=== PATIENT | male | born 1960 | race Caucasian/White ===

== ENCOUNTER 2020-10-15 14:54 | Observation (INO) | payer OTHER ==
[2020-10-15 15:22] LABS: Absolute Lymphocytes (CBC) 4.2 K/uL (0.7-4.9); Basophils % 0.6 % (0-1.3); Hematocrit 42.5 % (39.6-49.0); Lymphocytes % 28.4 % (15.3-44.8); MPV 7.3 fL (7.6-11.3); RBC Red Blood Cell Count 4.49 M/uL (4.33-5.43)
[2020-10-15 15:23] LABS: Protime INR 1.09
[2020-10-15] MEDS ORDERED: ONDANSETRON 4 MG/2 ML VIAL ONE (15:28)
[2020-10-15] MEDS ORDERED: MECLIZINE HCL 12.5 MG TAB ONE (15:28)
[2020-10-15 15:35] LABS: ALT/SGPT 23 U/L (12-78); AST/SGOT 13 U/L (15-37); Albumin 3.6 g/dL (3.4-5.0); Alkaline Phosphatase 70 U/L (45-117); BUN Blood Urea Nitrogen 15 mg/dL (7-18); Bicarbonate 26 mmol/L (21-32); Bilirubin Direct 0.2 mg/dL (0-0.2); Bilirubin Total 0.9 mg/dL (0.2-1.0); Glucose Level 103 mg/dL (74-106); Magnesium 2.5 mg/dL (1.8-2.4); NT PRO-BNP 314 pg/mL (<125); Potassium 3.7 mmol/L (3.5-5.1); Protein, Total 7.6 g/dL (6.4-8.2); Sodium Level 140 mmol/L (136-145); Troponin (Emerg Dept Use Only) < 0.02 ng/mL (0.0-0.045)
--- NOTE | 2020-10-15 16:01 | RAD REPORT ---
EXAM DESCRIPTION: Irine[place] Single View10/15/2020 3:38 pm CLINICAL HISTORY: Syncope COMPARISON: 2008 FINDINGS: The lungs appear clear of acute infiltrate. The heart is normal size IMPRESSION: No acute abnormalities displayed
--- NOTE | 2020-10-15 16:05 | RAD REPORT ---
EXAM DESCRIPTION: CT - Head Brain Wo Cont - 10/15/2020 3:52 pm CLINICAL HISTORY: Syncope COMPARISON: None TECHNIQUE: Computed axial tomography of the head was obtained. IV contrast was not requested. All CT scans are performed using dose optimization technique as appropriate and may include automated exposure control or mA/KV adjustment according to patient size. FINDINGS: An intracranial bleed is not seen . The ventricles are normal in caliber. No extra-axial fluid collection is noted. Fluid within the sinuses/ mastoids is not seen. IMPRESSION: No acute intracranial abnormality is seen. If patient's symptoms persist MRI of the bra in would be recommended.
[2020-10-15] MEDS ORDERED: NA CHLORIDE 0.9% 1,000 ML ONE (16:46)
[2020-10-15] MEDS ORDERED: DIAZEPAM 10 MG/2 ML INJ SYRINGE ONE (17:18)
--- NOTE | 2020-10-15 17:18 | RAD REPORT ---
EXAM DESCRIPTION: CT - Chest For Pe Angio - 10/15/2020 4:49 pm CLINICAL HISTORY: Syncope COMPARISON: None. TECHNIQUE: Dynamically enhanced axial 3 mm thick images of the chest were obtained during administra tion of <100> mL Isovue 370 IV contrast. Coronal and oblique reconstruction images were generated and reviewed. Exam utilizes a protocol for optimal evaluation of pulmonary arterial tree. Maximum intensity projections 3D imaging was utilized All CT scans are performed using dose optimization technique as appropriate and may include automated exposure control or mA/KV adjustment according to patient size. FINDINGS: A pulmonary embolus is not seen. A thoracic aortic aneurysm is not noted. A pleural effusion is not seen. A pericardial effusion is not seen. A lung consolidation is not present. 5.3 x 3.3 centimeter mass is present within the anterior mediastinum extending into the middle medias tinum and abutting the left aspect of the heart IMPRESSION: Negative for a pulmonary embolism. 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 It is recom mended that patient have a cardiac echo for further evaluation
--- NOTE | 2020-10-15 17:35 | EDPHYS ---
Physician Documentation [facility] Name: Hiram Art Age: 60 yrs Sex: Male : 1960 Arrival Date: 10/15/2020 Time: 15:01 Bed 24 Private MD: ED Physician Kamron Hawk HPI: 10/15 15:03 This 60 yrs old Male presents to ER via EMS with complaints of Near Syncope. [facility] 15:03 The patient has experienced near-syncope. Onset: The symptoms/episode began/occurred jmm acutely, just prior to arrival. Associated injury: The patient did not suffer any apparent associated injury. Associated signs and symptoms: Pertinent positives: lightheadedness, vertigo. The patient has experienced a previous episode. This is a 60 year old male with no known chronic medical conditions that presents to the ED with complaints of dizziness beginning just prior to arrival. This occurred while sitting in his car. Patient states having a similar episode this past Friday which had resolved. Denies chest pain. Historical: - Allergies: 15:08 No Known Allergies; ss - Home Meds: 15:08 None [Active]; ss - PMHx: 15:08 None; ss - PSHx: 15:08 None; ss - Immunization history:: Adult Immunizations up to date. - Social history:: Smoking status: Patient denies any tobacco usage or history of. ROS: 15:03 Constitutional: Negative for fever, chills, and weight loss, Cardiovascular: Negative jmm for chest pain, palpitations, and edema, Respiratory: Negative for shortness of breath, cough, wheezing, and pleuritic chest pain. 15:03 Neuro: Positive for dizziness. 15:03 All other systems are negative. Exam: 15:03 Head/Face: atraumatic. Eyes: EOMI, no conjunctival erythema appreciated ENT: Moist jmm Mucus Membranes Neck: Trachea midline, Supple Chest/axilla: Normal chest wall appearance and motion. Cardiovascular: Regular rate and rhythm. No edema appreciated Respiratory: Normal respirations, no respiratory distress appreciated Abdomen/GI: Non distended, soft Back: Normal ROM Skin: General appearance color normal 15:03 Constitutional: The patient appears alert, awake, diaphoretic. 15:03 Musculoskeletal/extremity: ROM: intact in all extremities. 15:03 Neuro: Orientation: is normal, Mentation: is normal, Memory: is normal, Cerebellar function: normal finger to nose testing. Vital Signs: 15:00 BP 135 / 76 RA (man/reg); Pulse 69; Resp 12; Pulse Ox 99% on R/A; jp3 15:05 BP 126 / 81; Pulse 70; Resp 14; Temp 97.7(TE); Pulse Ox 97% on R/A; Weight 95.71 kg; ss Height 5 ft. 9 in. (175.26 cm); Pain 0/10; 16:00 BP 130 / 72; Pulse 73; Resp 16; Pulse Ox 96% on R/A; vg1 17:11 BP 143 / 86; Pulse 83; Resp 16; Pulse Ox 100% on R/A; vg1 18:00 BP 157 / 101; Pulse 79; Resp 12; Pulse Ox 98% on R/A; vg1 19:00 BP 170 / 110; Pulse 63; Resp 12; Pulse Ox 98% on R/A; vg1 20:00 BP 159 / 97; Pulse 75; Resp 18; Pulse Ox 97% on R/A; vg1 21:00 BP 165 / 113; Pulse 70; Resp 16; Pulse Ox 100% on R/A; vg1 15:05 Body Mass Index 31.16 (95.71 kg, 175.26 cm) ss MDM: 15:03 Patient medically screened. [facility] 17:32 Data reviewed: vital signs, nurses notes. Counseling: I had a detailed discussion with iwona the patient and/or guardian regarding: the historical points, exam findings, and any diagnostic results supporting the discharge/admit diagnosis, lab results, radiology results, the need for further work-up and treatment in the hospital. ED course: I discussed the patient with Dr. Cohen whom accepted the patient for admission. . 10/15 15:03 Order name: Basic Metabolic Panel; Complete Time: 15:36 [facility] 10/15 15:03 Order name: CBC with Diff; Complete Time: 15: [facility] 10/15 15:03 Order name: LFT's; Complete Time: 15:36 [facility] 10/15 15:03 Order name: Magnesium; Complete Time: 15:36 [facility] 10/15 15:03 Order name: NT PRO-BNP; Complete Time: 15:36 [facility] 10/15 15:03 Order name: PT-INR; Complete Time: 16:23 [facility] 10/15 15:03 Order name: Troponin (emerg Dept Use Only); Complete Time: 15:36 [facility] 10/15 15:03 Order name: XRAY Chest (1 view); Complete Time: 16:05 [facility] 10/15 15:03 Order name: CT Head Brain wo Cont; Complete Time: 16:06 [facility] 10/15 16:19 Order name: D-Dimer; Complete Time: 16:23 [facility] 10/15 19:20 Order name: SARS-COV-2 RT PCR; Complete Time: 19:37 [facility] 10/15 15:03 Order name: EKG; Complete Time: 15:05 [facility] 10/15 15:03 Order name: Cardiac monitoring; Complete Time: 15:07 [facility] 10/15 15:03 Order name: EKG - Nurse/Tech; Complete Time: 15:07 [facility] 10/15 15:03 Order name: IV Saline Lock; Complete Time: 15:07 [facility] 10/15 15:03 Order name: Labs collected and sent; Complete Time: 15:07 [facility] 10/15 15:03 Order name: O2 Per Protocol; Complete Time: 15:08 [facility] 10/15 15:03 Order name: O2 Sat Monitoring; Complete Time: 15:08 [facility] 10/15 16:23 Order name: CT Chest For PE Angio; Complete Time: 17:20 [facility] 10/15 19:32 Order name: CONS Physician Consult [facility] Administered Medications: 15:13 Drug: Zofran (Ondansetron) 4 mg Route: IVP; Site: left antecubital; vg1 16:25 Follow up: Response: No adverse reaction vg1 15:13 Drug: Meclizine 25 mg Route: PO; vg1 16:25 Follow up: Response: No adverse reaction vg1 16:31 Drug: NS 0.9% 1000 ml Route: IV; Rate: 1 bolus; Site: left antecubital; vg1 17:30 Follow up: IV Status: Completed infusion; IV Intake: 1000ml vg1 17:05 Drug: Valium (diazepam) 2 mg Route: IVP; Site: left antecubital; vg1 18:00 Follow up: Response: No adverse reaction vg1 Disposition: 10/15/20 17:34 Hospitalization ordered by Shanita Cohen for Observation. Preliminary diagnosis are Syncope and collapse, Vertigo. - Bed requested for Telemetry/MedSurg (observation). - Status is Observation. vg1 - Condition is Stable. - Problem is new. - Symptoms are unchanged. Addendum: 10/18/2020 17:32 Co-signature as Attending Physician, Kamron Hawk MD. [place] Signatures: Dispatcher [employer] EDOR Nya Ron RN RN Kamron Hawk MD MD pkPaul Alegre PA PA [facility] Rain Campbell RN RN ss Shari Rodriguez RN RN vg1 Corrections: (The following items were deleted from the chart) 10/15 16:19 15:37 D-DIMER+COAG.LAB.BRZ ordered. EDOR EDMS 16:29 16:24 Head Angio+CT.RAD.BRZ ordered. EDOR EDMS 16:29 16:24 Neck Angio+CT.RAD.BRZ ordered. EDOR EDMS 18:26 17:57 CORONAVIRUS+MR.LAB.BRZ ordered. EDOR EDMS 19:36 17:34 Hospitalization Ordered by Shanita Cohen MD for Observation. Preliminary diagnosis is Syncope and collapse; Vertigo. Bed requested for Telemetry/MedSurg (observation). Status is Observation. Condition is Stable. Problem is new. Symptoms are unchanged. [facility] 21:59 19:36 10/15/2020 17:34 Hospitalization Ordered by Shanita Cohen MD for Observation. vg1 Preliminary diagnosis is Syncope and collapse; Vertigo. Bed requested for Telemetry/MedSurg (observation). Status is Observation. Condition is Stable. Problem is new. Symptoms are unchanged. dw
--- NOTE | 2020-10-15 17:35 | ER ---
Nurse's Notes [facility] Name: Hiram Art Age: 60 yrs Sex: Male : 1960 Arrival Date: 10/15/2020 Time: 15:01 Bed 24 Private MD: Diagnosis: Syncope and collapse;Vertigo Presentation: 10/15 15:05 Chief complaint: EMS states: PT was sitting in car with AC on waiting on a friend when ss he suddenly became dizzy, weak and diaphoretic. Pulse upon arrival to scene was 40 bmp. PT reports feeling better now, but is just weak. Pt reports he felt fine this morning, but had an episode of dizziness, "like the room was spinning", but lasted only momentarily. Coronavirus screen: Client denies travel out of the [place] in the last 14 days. Ebola Screen: Patient denies exposure to infectious person. Patient denies travel to an Ebola-affected area in the 21 days before illness onset. Initial Sepsis Screen: Does the patient meet any 2 criteria? No. Patient's initial sepsis screen is negative. Does the patient have a suspected source of infection? No. Patient's initial sepsis screen is negative. Risk Assessment: Do you want to hurt yourself or someone else? Patient reports no desire to harm self or others. Onset of symptoms was October 15, 2020. 15:05 Method Of Arrival: EMS: [facility] 15:05 Acuity: MARY 2 ss Historical: - Allergies: 15:08 No Known Allergies; ss - Home Meds: 15:08 None [Active]; ss - PMHx: 15:08 None; ss - PSHx: 15:08 None; ss - Immunization history:: Adult Immunizations up to date. - Social history:: Smoking status: Patient denies any tobacco usage or history of. Screenin:15 Abuse screen: Denies threats or abuse. Nutritional screening: No deficits noted. vg1 Tuberculosis screening: No symptoms or risk factors identified. Fall Risk Fall in past 12 months (25 points). No secondary diagnosis (0 pts). IV access (20 points). Ambulatory Aid- None/Bed Rest/Nurse Assist (0 pts). Gait- Normal/Bed Rest/Wheelchair (0 pts) Mental Status- Oriented to own ability (0 pts). Total Enrique Fall Scale indicates High Risk Score (45 or more points). Fall prevention measures have been instituted. Side Rails Up X 2 Placed Close to Nursing Station 1:1 Attendant Assigned Family Present and informed to notify staff if the need to leave the bedside. Assessment: 15:14 General: Appears in no apparent distress. uncomfortable, Behavior is calm, cooperative. vg1 Pain: Denies pain. Neuro: Level of Consciousness is awake, alert, obeys commands, Oriented to person, place, time, situation. Cardiovascular: Capillary refill < 3 seconds in bilateral fingers. Respiratory: Airway is patent Respiratory effort is even, unlabored. GI: Patient currently denies diarrhea, nausea, vomiting. : No signs and/or symptoms were reported regarding the genitourinary system. EENT: No signs and/or symptoms were reported regarding the EENT system. Derm: Skin is diaphoretic. Musculoskeletal: Circulation, motion, and sensation intact. 16:24 Reassessment: Patient appears in no apparent distress at this time. No changes from vg1 previously documented assessment. Patient and/or family updated on plan of care and expected duration. Pain level reassessed. Patient is alert, oriented x 3, equal unlabored respirations, skin warm/dry/pink. 16:32 Reassessment: Pt stated 'is feeling dizzy, feels like if I were to stand I'd fall.' vg1 Asked if the room seemed to be spinning and pt stated 'no'. Provider notified. 20:25 Reassessment: Attempted to call report. vg1 20:50 Reassessment: attempt to call report. vg1 Vital Signs: 15:00 BP 135 / 76 RA (man/reg); Pulse 69; Resp 12; Pulse Ox 99% on R/A; jp3 15:05 BP 126 / 81; Pulse 70; Resp 14; Temp 97.7(TE); Pulse Ox 97% on R/A; Weight 95.71 kg; ss Height 5 ft. 9 in. (175.26 cm); Pain 0/10; 16:00 BP 130 / 72; Pulse 73; Resp 16; Pulse Ox 96% on R/A; vg1 17:11 BP 143 / 86; Pulse 83; Resp 16; Pulse Ox 100% on R/A; vg1 18:00 BP 157 / 101; Pulse 79; Resp 12; Pulse Ox 98% on R/A; vg1 19:00 BP 170 / 110; Pulse 63; Resp 12; Pulse Ox 98% on R/A; vg1 20:00 BP 159 / 97; Pulse 75; Resp 18; Pulse Ox 97% on R/A; vg1 21:00 BP 165 / 113; Pulse 70; Resp 16; Pulse Ox 100% on R/A; vg1 15:05 Body Mass Index 31.16 (95.71 kg, 175.26 cm) ED Course: 15:01 Patient arrived in ED. vg1 15:01 Paul Betancourt PA is PHCP. jm 15:01 Kamron Hawk MD is Attending Physician. [facility] 15:07 Shari Rodriguez, RN is Primary Nurse. vg1 15:08 Triage completed. ss 15:08 Arm band placed on right wrist. ss 15:08 Initial lab(s) drawn, by me, sent to lab. EKG done, by ED staff, reviewed by Paul KHALIL. Maintain EMS IV. Dressing intact. Good blood return noted. Site clean \\T\\ dry. Gauge \\T\\ site: 20-gauge in LAC. Patient maintains SpO2 saturation greater than 95% on room air. 15:09 Placed in gown. Bed in low position. Call light in reach. Side rails up X2. Verbal jp3 reassurance given. monitor worker on. Pulse ox on. NIBP on. 15:38 XRAY Chest (1 view) In Process Unspecified. EDMS 15:50 CT Head Brain wo Cont In Process Unspecified. EDMS 16:49 CT Chest For PE Angio In Process Unspecified. EDMS 16:[address] via stretcher. vg1 16:[address]. vg1 17:34 Shanita Cohen MD is Hospitalizing Provider. [facility] 18:10 COVID swab sent to lab. vg1 21:20 Patient admitted, IV remains in place. vg1 21:20 No provider procedures requiring assistance completed. vg1 Administered Medications: 15:13 Drug: Zofran (Ondansetron) 4 mg Route: IVP; Site: left antecubital; vg1 16:25 Follow up: Response: No adverse reaction vg1 15:13 Drug: Meclizine 25 mg Route: PO; vg1 16:25 Follow up: Response: No adverse reaction vg1 16:31 Drug: NS 0.9% 1000 ml Route: IV; Rate: 1 bolus; Site: left antecubital; vg1 17:30 Follow up: IV Status: Completed infusion; IV Intake: 1000ml vg1 17:05 Drug: Valium (diazepam) 2 mg Route: IVP; Site: left antecubital; vg1 18:00 Follow up: Response: No adverse reaction vg1 Intake: 17:30 IV: 1000ml; Total: 1000ml. vg1 Outcome: 17:34 Decision to Hospitalize by Provider. iwona 21:19 Admitted to Med/surg accompanied by tech, via wheelchair, room 421, with chart, Report vg1 called to DIOGO [place] 21:19 Condition: unchanged 21:19 Instructed on the need for admit. 21:59 Patient left the ED. vg1 Signatures: Dispatcher [employer] EDMS Paul Betancourt PA PA jmm Smirch, Shelby, DIOGO RN Karlos Gaines jp3 Shari Rodriguez RN RN vg1
--- NOTE | 2020-10-15 21:15 | P.HP ---
Certification for Inpatient Patient admitted to: Observation With expected LOS: <2 Midnights Patient will require the following post-hospital care: None Practitioner: I am a practitioner with admitting privileges, knowledge of patient current condition, hospital course, and medical plan of care. Services: Services provided to patient in accordance with Admission requirements found in Title 42 Section 412.3 of the Code of Federal Regulations Patient History Date of Service: 10/15/20 Reason for admission: near syncope History of Present Illness: Mr. Art is a 60 yo male here today with near syncopal event and extreme diaphoresis. He says today around 2pm he started to feel faint and dizzy. He says he was going in and out of consciousness for a few seconds at a time. He says on Friday, he woke up feeling dizzy. He denies chest pain, nausea, vomiting. Feels at baseline now. He says this happened once about 10 years ago while on vacation and he followed up with Dr. Fernandes with normal stress test at that time. Denies smoking, family history of CAD. WBC 14.8. CXR shows bronchogenic cyst with recommendations for followup ECHO. Allergies No Known Allergies Allergy (Unverified 10/15/20 20:57) Home Medications: NK [No Home Meds] 10/15/20 - Past Medical/Surgical History Has patient received pneumonia vaccine in the past: No Diabetic: No Past Medical History: Patient denies medical history Past Surgical History: Patient denies surgical history - Family History Family History: Reviewed- Non-Contributory - Social History Smoking Status: Never smoker Alcohol use: Yes CD- Drugs: No Caffeine use: Yes Place of Residence: Home Review of Systems General: Sweats, As per HPI Eyes: Unremarkable ENT: Unremarkable Respiratory: Unremarkable Cardiovascular: Light Headedness, Other (near syncopal episode) Gastrointestinal: Unremarkable Genitourinary: Unremarkable Musculoskeletal: Unremarkable Integumentary: Unremarkable Neurological: Unremarkable Lymphatics: Unremarkable Physical Examination - Physical Exam General: Alert, In no apparent distress, Oriented x3, Cooperative HEENT: Atraumatic, Normocephalic, PERRLA, Mucous membr. moist/pink, EOMI, Sclerae nonicteric Neck: Supple, 2+ carotid pulse no bruit, JVD not distended, No Thyromegaly, No LAD Respiratory: Clear to auscultation bilaterally, Normal air movement Cardiovascular: No edema, Normal pulses, Regular rate/rhythm, Normal S1 S2, No gallops, No rubs, No murmurs Capillary refill: <2 Seconds Gastrointestinal: Normal bowel sounds, Soft and benign, Non-distended, No ascites, No tenderness, No masses, No rebound, No guarding Musculoskeletal: No clubbing, No swelling, No contractures, No erythema, No tenderness, No warmth Integumentary: No rashes, No breakdown, No significant lesion, No tenderness/swelling, No erythema, No warmth, No cyanosis Neurological: Normal gait, Normal speech, Normal strength at 5/5 x4 extr, Normal tone, Sensation intact, Cranial nerves 3-12 intact, Normal affect Lymphatics: No axilla or inguinal lymphadenopathy - Studies Laboratory Data (last 24 hrs) 10/15/20 15:00: PT 12.5, INR 1.09 10/15/20 15:00: WBC 14.80 H, Hgb 14.4, Hct 42.5, Plt Count 362 10/15/20 15:00: Sodium 140, Potassium 3.7, BUN 15, Creatinine 1.25, Glucose 103, Magnesium 2.5 H, Total Bilirubin 0.9, AST 13 L, ALT 23, Alkaline Phosphatase 70 Assessment and Plan - Plan Assessment near syncopal event bronchogenic cyst Plan Cardiology consulted, on telemetry trend troponins and EKG lipid panel, TSH/T4, A1c pending DVt ppx BP initially well controlled, IV hydralazine 10mg IV q6hr, will continue to monitor orthostatic vitals in the AM will consider inpatient ECHO for bronchogenic cyst vs outpatient followup Discharge Plan: Home Plan to discharge in: 24 Hours - Advance Directives Does patient have a Living Will: No Does patient have a Durable POA for Healthcare: No - Code Status/Comfort Care Code Status Assessed: Yes (full code) Critical Care: No Time Spent Managing Pts Care (In Minutes): 70
[2020-10-15] MEDS: HYDRALAZINE HCL 20 MG/ML VIAL IV PRN (22:30)
[2020-10-15] MEDS ORDERED: ACETAMINOPHEN 500 MG TAB PO PRN (22:38)
[2020-10-15] MEDS ORDERED: ZOLPIDEM TARTRATE 5 MG TABLET PO PRN (22:38)
[2020-10-15 23:22] VITALS: BMI 30.7
[2020-10-15 23:34] LABS: Thyroid Stimulating Hormone 0.967 uIU/mL (0.360-3.740); Troponin I < 0.02 ng/mL (0.0-0.045)
[2020-10-16 03:37] LABS: Absolute Lymphocytes (CBC) 2.1 K/uL (0.7-4.9); Basophils % 0.5 % (0-1.3); Hematocrit 41.5 % (39.6-49.0); Lymphocytes % 22.7 % (15.3-44.8); MPV 7.3 fL (7.6-11.3); RBC Red Blood Cell Count 4.38 M/uL (4.33-5.43)
[2020-10-16 03:46] LABS: Albumin 3.3 g/dL (3.4-5.0); Bilirubin Total 0.7 mg/dL (0.2-1.0); Magnesium 2.6 mg/dL (1.8-2.4); Phosphorus 3.6 mg/dL (2.5-4.9); Potassium 4.4 mmol/L (3.5-5.1)
[2020-10-16 04:24] LABS: Urine Appearance CLEAR (Clear); Urine Bilirubin NEGATIVE (Negative); Urine Blood NEGATIVE (Negative); Urine Color YELLOW (Yellow); Urine Glucose NEGATIVE (Negative); Urine Protein NEGATIVE (Negative); Urine Specific Gravity 1.025 (1.005-1.030); Urine Urobilinogen 0.2 mg/dL (0.2-1.0)
[2020-10-16 04:29] LABS: Urine Microscopic Reflex NO UMIC
[2020-10-16] MEDS ORDERED: METOPROLOL TAR 25 MG TAB PO SCH (06:00)
[2020-10-16] MEDS: HYDRALAZINE HCL 20 MG/ML VIAL IV PRN (08:33)
[2020-10-16 08:43] VITALS: TEMP 97.9
[2020-10-16] MEDS ORDERED: ASPIRIN EC 81 MG TAB PO SCH (09:00)
[2020-10-16] MEDS ORDERED: ENOXAPARIN 40 MG/0.4 ML SQ SCH (09:00)
--- NOTE | 2020-10-16 10:49 | EKG ---
Test Date: 2020-10-15 Test Time: 14:58:15 Cosmetician: RACHAEL MEASUREMENT RESULTS: Intervals: Rate: 68 MN: 168 QRSD: 86 QT: 432 QTc: 459 [place]: P: 48 MN: 168 QRS: 12 T: 36 INTERPRETIVE STATEMENTS: Normal sinus rhythm Moderate voltage criteria for LVH, may be normal variant Borderline ECG No previous ECG available for comparison Electronically Signed On 10-16-20 10:46:47 CDT by Jamil Medina
--- NOTE | 2020-10-16 10:52 | ECHO ---
HEIGHT: 5 ft 9 in WEIGHT: 208 lb 6.4 oz DATE OF STUDY: 10/16/[address]: Chaz Tee DO 2-DIMENSIONAL: YES M.MODE: YES DOPPLER: YES COLOR FLOW: YES TDS: PORTABLE: DEFINITY: BUBBLE STUDY: DIAGNOSIS: SYNCOPE CARDIAC HISTORY: CATHERIZATION: NO SURGERY: NO PROSTHETIC VALVE: NO PACEMAKER: NO MEASUREMENTS (cm) DIASTOLIC (NORMALS) SYSTOLIC (NORMALS) IVSd 1.3 (0.6-1.2) LA Diam 3.2 (1.9-4.0) LVEF 83% LVIDd 4.0 (3.5-5.7) LVIDs 1.9 (2.0-3.5) %FS 51% LVPWd 1.3 (0.6-1.2) Ao Diam 2.8 (2.0-3.7) 2 DIMENSIONAL ASSESSMENT: RIGHT ATRIUM: NORMAL LEFT ATRIUM: NORMAL RIGHT VENTRICLE: NORMAL LEFT VENTRICLE: NORMAL TRICUSPID VALVE: NORMAL MITRAL VALVE: NORMAL PULMONIC VALVE: NORMAL AORTIC VALVE: NORMAL PERICARDIAL EFFUSION: NONE AORTIC ROOT: NORMAL LEFT VENTRICULAR WALL MOTION: NORMAL DOPPLER/COLOR FLOW: NORMAL COMMENTS: NORMAL 2-DIMENSIONAL ECHOCARDIOGRAM WITH DOPPLER. NO WALL MOTION ABNORMALITY. NO EFFUSION. TECHNOLOGIST: RAMÓN HOOD
[2020-10-16 11:49] VITALS: O2SAT 99
--- NOTE | 2020-10-16 12:16 | P.DS ---
Admission Date: 10/15/20 Discharge Date: 10/16/20 Primary Care Provider: none Disposition: ROUTINE DISCHARGE Discharge Condition: GOOD Reason for Admission: near syncope Consultations: Cardiology-Dr. Medina Pulmonary-Dr. Hobbs Procedures: COVID: Negative CT Head: FINDINGS: An intracranial bleed is not seen . The ventricles are normal in caliber. No extra-axial fluid collection is noted. Fluid within the sinuses/ mastoids is not seen. IMPRESSION: No acute intracranial abnormality is seen. CT Scan: FINDINGS: A pulmonary embolus is not seen. A thoracic aortic aneurysm is not noted. A pleural effusion is not seen. A pericardial effusion is not seen. A lung consolidation is not present. 5.3 x 3.3 centimeter mass is present within the anterior mediastinum extending into the middle mediastinum and abutting the left aspect of the heart IMPRESSION: Negative for a pulmonary embolism. 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 It is recommended that patient have a cardiac echo for further evaluation ECHO: MEASUREMENTS (cm) DIASTOLIC (NORMALS) SYSTOLIC (NORMALS) IVSd 1.3 (0.6-1.2) LA Diam 3.2 (1.9-4.0) LVEF 83% LVIDd 4.0 (3.5-5.7) LVIDs 1.9 (2.0-3.5) %FS 51% LVPWd 1.3 (0.6-1.2) Ao Diam 2.8 (2.0-3.7) 2 DIMENSIONAL ASSESSMENT: RIGHT ATRIUM: NORMAL LEFT ATRIUM: NORMAL RIGHT VENTRICLE: NORMAL LEFT VENTRICLE: NORMAL TRICUSPID VALVE: NORMAL MITRAL VALVE: NORMAL PULMONIC VALVE: NORMAL AORTIC VALVE: NORMAL PERICARDIAL EFFUSION: NONE AORTIC ROOT: NORMAL LEFT VENTRICULAR WALL MOTION: NORMAL DOPPLER/COLOR FLOW: NORMAL COMMENTS: NORMAL 2-DIMENSIONAL ECHOCARDIOGRAM WITH DOPPLER. NO WALL MOTION ABNORMALITY. NO EFFUSION. Medical Problem List: Near syncope Hypertension uncontrolled CT scan showing 5.3 x 3.3 cm low-density mass within the mediastinum likely bronchogenic cyst Obesity, BMI 30.8 Brief History of Present Illness: 60 yo male presented to the ER with near syncopal event and extreme diaphoresis. He says today around 2pm he started to feel faint and dizzy. He says he was going in and out of consciousness for a few seconds at a time. He says on Friday, he woke up feeling dizzy. He denies chest pain, nausea, vomiting. Feels at baseline now. He says this happened once about 10 years ago while on vacation and he followed up with Dr. Fernandes with normal stress test at that time. Denies smoking, family history of CAD. WBC 14.8. CT scan also showed shows bronchogenic cyst with recommendations for followup ECHO. Admitted for further evaluation and treatment. Hospital Course: Patient presented with presyncope episode. Patient with elevated blood pressure with hypertension. Patient was started on medication in the hospital. Patient previously on Benicar in the distant past. CT head unremarkable. CT chest showed a 5.3 x 3.3 cm mediastinal mass likely bronchogenic cyst. Echocardiogram was performed to further evaluate. Echo unremarkable. Patient seen and evaluated by pulmonology and cardiology. Cardiology recommended no further inpatient intervention. Pulmonology spoke with CV surgery concerning bronchogenic cyst. Pulmonology recommends that the patient see [facility] surgery[facility]. [facility] further evaluate. Patient will likely require MRI of chest to further assess. Patient will likely require robotic surgery to remove cyst. Recommend follow-up with cardiology as an outpatient to further address. Patient may require outpatient cardiac evaluation as an outpatient. Recommend follow-up with pulmonology as directed above. Patient with elevated blood pressure with hypertension. Medications have been started. Patient blood pressure improved with metoprolol and lisinopril. At discharge patient will continue with metoprolol 12.5 mg 1 pill twice daily, lisinopril 10 mg daily and aspirin 81 mg daily. Recommend to maintain blood pressure less than 130/80. Further treatment can be done by his PCP or cardiology. Vital Signs/Physical Exam: Temp Pulse Resp BP Pulse Ox 97.9 F 68 16 175/91 H 99 10/16/20 08:00 10/16/20 08:00 10/16/20 08:00 10/16/20 08:00 10/16/20 08:00 General: Alert, In no apparent distress, Oriented x3, Cooperative HEENT: Atraumatic Neck: Supple Respiratory: Clear to auscultation bilaterally, Normal air movement Cardiovascular: Normal pulses, Regular rate/rhythm Gastrointestinal: Normal bowel sounds, No tenderness, No masses, No rebound, No guarding Musculoskeletal: No erythema, No tenderness, No warmth Integumentary: No tenderness/swelling Neurological: Normal speech, Normal strength at 5/5 x4 extr, Normal tone, Normal affect Laboratory Data at Discharge: WBC 9.40 K/uL (4.3-10.9) D 10/16/20 02:50 Hgb 14.2 g/dL (13.6-17.9) 10/16/20 02:50 Hct 41.5 % (39.6-49.0) 10/16/20 02:50 Plt Count 282 K/uL (152-406) D 10/16/20 02:50 PT 12.5 SECONDS (9.5-12.5) 10/15/20 15:00 INR 1.09 10/15/20 15:00 Sodium 140 mmol/L (136-145) 10/16/20 02:50 Potassium 4.4 mmol/L (3.5-5.1) 10/16/20 02:50 BUN 11 mg/dL (7-18) 10/16/20 02:50 Creatinine 0.91 mg/dL (0.55-1.3) 10/16/20 02:50 Glucose 108 mg/dL (74-106) H 10/16/20 02:50 Phosphorus 3.6 mg/dL (2.5-4.9) 10/16/20 02:50 Magnesium 2.6 mg/dL (1.8-2.4) H 10/16/20 02:50 Total Bilirubin 0.7 mg/dL (0.2-1.0) 10/16/20 02:50 AST 12 U/L (15-37) L 10/16/20 02:50 ALT 21 U/L (12-78) 10/16/20 02:50 Alkaline Phosphatase 67 U/L (45-117) 10/16/20 02:50 Troponin I < 0.02 ng/mL (0.0-0.045) 10/16/20 02:50 Triglycerides 91 mg/dL (<150) 10/16/20 02:50 Cholesterol 182 mg/dL (<200) 10/16/20 02:50 HDL Cholesterol 69 mg/dL (40-60) H 10/16/20 02:50 Cholesterol/HDL Ratio 2.64 10/16/20 02:50 Home Medications: Aspirin [Aspirin EC 81 MG] 81 mg PO DAILY #90 tablet. 10/16/20 Metoprolol Tartrate [Lopressor*] 12.5 mg PO BID 6AM 6PM #60 tab 10/16/20 lisinopriL [Prinivil*] 10 mg PO DAILY #30 tab 10/16/20 New Medications: Aspirin [Aspirin EC 81 MG] 81 mg PO DAILY #90 tablet. Metoprolol Tartrate [Lopressor*] 12.5 mg PO BID 6AM 6PM #60 tab lisinopriL [Prinivil*] 10 mg PO DAILY #30 tab Physician Discharge Instructions: Patient presented with presyncope episode. Patient with elevated blood pressure with hypertension. Patient was started on medication in the hospital. Patient previously on Benicar in the distant past. CT head unremarkable. CT chest showed a 5.3 x 3.3 cm mediastinal mass likely bronchogenic cyst. Echocardiogram was performed to further evaluate. Echo unremarkable. Patient seen and evaluated by pulmonology and cardiology. Cardiology recommended no further inpatient intervention. Pulmonology spoke with CV surgery concerning bronchogenic cyst. Pulmonology recommends that the patient see CV surgeryDr. Stiles at [facility] to further evaluate. Patient will likely require MRI of chest to further assess. Patient will likely require robotic surgery to remove cyst. Recommend follow-up with cardiology as an outpatient to further address. Patient may require cardiac evaluation as an outpatient. Recommend follow-up with pulmonology as directed above. Patient with elevated blood pressure with hypertension. Medications have been started. Patient blood pressure improved with metoprolol and lisinopril. At discharge patient will continue with metoprolol 12.5 mg 1 pill twice daily, lisinopril 10 mg daily and aspirin 81 mg daily. Recommend to maintain blood pressure less than 130/80. Further treatment can be done by his PCP or cardiology. Diet: AHA Activity: Ad mika Followup: TOMAS MARIN [Primary Care Provider] - Time spent managing pt's care (in minutes): 55
[2020-10-16] MEDS ORDERED: AMLODIPINE 5 MG TAB PO ONE (12:37)
--- NOTE | 2020-10-16 12:37 | P.CNS ---
Date of Consult: 10/16/20 Reason for Consult: Near syncope Primary Care Provider: none Chief Complaint: Mediastinal mass History of Present Illness: Patient is 60 years of age presented with a near syncopal episode came on all of a sudden last episode was 11 years ago he was seen by circulation manager he does have hypertension non compliant denies any chest pain shortness of breath does not smoke no other constitutional symptoms was found to have a mediastinal mass most likely middle mediastinum extending into the anterior Allergies No Known Allergies Allergy (Unverified 10/15/20 20:57) Home Medications: Aspirin [Aspirin EC 81 MG] 81 mg PO DAILY #90 tablet. 10/16/20 Metoprolol Tartrate [Lopressor*] 12.5 mg PO BID 6AM 6PM #60 tab 10/16/20 lisinopriL [Prinivil*] 10 mg PO DAILY #30 tab 10/16/20 - Past Medical/Surgical History Diabetic: No -: Hypertension - Social History Alcohol use: Yes CD- Drugs: No Caffeine use: Yes Place of Residence: Home Review of Systems 10-point ROS is otherwise unremarkable Physical Examination Temp Pulse Resp BP Pulse Ox 97.9 F 68 16 175/91 H 99 10/16/20 08:00 10/16/20 08:00 10/16/20 08:00 10/16/20 08:00 10/16/20 08:00 General: Alert, Oriented x3 HEENT: Atraumatic Neck: Supple Respiratory: Clear to auscultation bilaterally Cardiovascular: No edema, Regular rate/rhythm, Normal S1 S2 Gastrointestinal: Soft and benign Laboratory Data (last 24 hrs) 10/15/20 15:00: PT 12.5, INR 1.09 10/15/20 15:00: WBC 14.80 H, Hgb 14.4, Hct 42.5, Plt Count 362 10/15/20 15:00: Sodium 140, Potassium 3.7, BUN 15, Creatinine 1.25, Glucose 103, Magnesium 2.5 H, Total Bilirubin 0.9, AST 13 L, ALT 23, Alkaline Phosphatase 70 - Problems (1) Mediastinal mass Current Visit: Yes Status: Acute Plan: Patient is 60 years of age admitted with a near syncopal attack severe hypertension is start taking his medication at home is feeling a little dizzy. Does the have an incidental finding on a CT pulmonary angiogram of middle mediastinal mass which appears cystic distal lower t the ascending pulmonary artery labs reviewed blood pressure need to be controlled as to resume his blood pressure medications discuss with thoracic surgery doctor Yash at [facility] he niece to her follow-up with him for possible robotic surgery and removal
[2020-10-16 13:24] VITALS: BP 126/84
--- NOTE | 2020-10-16 17:25 | CON ---
Reason For Consultation: The patient was admitted with near syncope episode and diaphoresis. History Of Present Illness: Mr. Art is a 60-year-old white male. Has had an episode similar to that about 10 years ago with negative cardiac workup in the office including an echocardiogram, Alexy r monitor and stress test by Dr. Fernandes. He has a history of hypertension that he is not taking any medicine for it. While he was sitting in the car yesterday, he was very diaphoretic and had a syncop al episode. Prior to this happened, he did not have any nausea or vomiting. He did not have any daniela st pain. He did not have any palpitation. Has not had any fever or chills. When he came to the [facility] room, he was hypertensive. His EKG was unremarkable. His troponin was unremarkable. His cre atinine was 1.23 and went back to normal. He has had a white count of 14,000. BNP was 314. He was in sinus rhythm. The only positive finding was an abnormal mediastinal mass of 5.3 x 5 x 3 cm that m ay be abutting the left ventricle. Echocardiogram was done, did not see any cyst on the echo. His e chocardiogram was normal. Past Medical History: Includes hypertension. Allergies: NONE. Review of Systems: Negative. Social History: Positive for alcohol. Family History: Noncontributory. Physical Examination: Vital Signs: Blood pressure is 157/101, sinus rhythm. HEENT: Negative. Neck: Supple with no bruit. Chest: Clear. Cardiac: Revealed a regular rhythm and rate. No murmurs, gallops, or rubs. Abdomen: Benign. Extremities: Revealed no clubbing, cyanosis, or edema. Diagnostic Data: As stated earlier. Impression And Plan: Presyncope and diaphoresis most likely secondary to a vasovagal reaction, dehyd ration, or hypotension. He is hypertensive now and I think a low-dose HUMA inhibitor or a calcium wes nnel henri is indicated. If CT of the chest is very abnormal, may need to proceed with an echocard iogram. I would obtain a Pulmonary consult to consider an MRI of the chest versus echocar diogram. Case was discussed with Dr. Tee. JOSÉ MANUEL/FARIDA Voice ID: [id number] Report ID: [id number]
[2020-10-16] MEDS ORDERED: ATORVASTATIN 20 MG TAB PO SCH (21:00)
[2020-10-17] MEDS ORDERED: lisinopriL 10 MG TAB PO SCH (09:00)
[2020-10-17] MEDS ORDERED: AMLODIPINE 5 MG TAB PO SCH (12:29)
== END 2020-10-16 04:50 | disposition home or self-care (01) ==
LOC: ER 14:54 → ERHOLD 20:36 → 4TH 21:23
PROVIDERS: ADMIT Family Medicine; ATTEND Family Medicine
DX: R55 Syncope and collapse (principal); I10 Essential (primary) hypertension; R22.2 Localized swelling, mass and lump, trunk; Z20.822 Contact with and (suspected) exposure to COVID-19; E66.9 Obesity, unspecified; Z68.30 Body mass index [BMI] 30.0-30.9, adult; R61 Generalized hyperhidrosis
CPT/HCPCS: 96361; 93005; 93306; 85025 ×2; 80048; 36415; 83735 ×2; 84100; 85610; 80061; 85379; 80076; 84443; 81003; 84484 ×3; 84439; 80053; 83880; 70450; 71275; 71045; 94760; 96375; 96374; 99285; U0003; Q9967; J0360 ×2; J1650; J3360; J7030; J2405; G0378

== ENCOUNTER 2022-05-23 08:24 | Emergency (ER) | payer OTHER ==
--- OUTSIDE RECORDS SUMMARY | 2022-05-23 08:27 | XMS REPORT | Continuity of Care Document ---
:1960 Author Organization [facility] t Address [address] [place] [address] Care Team Providers Name Role Phone Vincent MCPHERSON [facility] Primary Care Physician [phone] Diana Anderson Attending Clinician Unavailable MADALYN CARTER Attending Clinician Unavailable MD MADALYN CARTER Attending Clinician Unavailable MADALYN CARTER Admitting Clinician Unavailable MD MADALYN CARTER Admitting Clinician Unavailable Payers Payer Name Policy Type Policy Number Effective Date Expiration Date Amber clements [employer] 53 [id number] 2021 [facility] - 00:00:00 [facility] Problems Condition Condition Condition Status Onset Resolution Last Treating Co mments Source Name Details Category Date Date Treatment Clinician Date Mediastina Mediastina Disease Active Overview : Methodi l mass l mass 5-[address] 00:00: g of this [facility] 00 note l might be different from the original. 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 Social History Social Habit Start Date Stop Date Quantity Comments Source History of [facility] - Tobacco Use [facility] Sex Assigned At Common Sp fred - [facility] Alcohol intake 2021-02-02 2021-02-02 Current drinker [facility] 00:00:00 00:00:00 of [facility] (finding) Tobacco use and 2020-11-16 2020-11-16 Smokeless tobacco [facility] exposure 00:00:00 00:00:00 non-user Hospital Smoking Status Start Date Stop Date Source Never Smoker [facility] Medications Ordered Filled Start Stop Current Ordering Indication Dosage Frequency Signature Comments Components Source Medication Medication Date Date Medication? Clinician (SIG) Name Name [place] No 40mg Common (Triamcinol (Triamcinol 7-19 S pirit one) one) 00:00: [facility] Van Araujo No 40mg Common (Triamcinol (Triamcinol 7-19 S pirit one) one) 00:00: [facility] [place] No 40mg Common (Triamcinol (Triamcinol 7-19 S pirit one) one) 00:00: [facility] metoprolol Yes 25mg QD Take 25 mg M ethodi tartrate 5-[address] (LOPRESSOR) 00:00: daily. Hosp kati 25 mg 00 with food l tablet - lisinopriL- Yes 1{tbl} QD Take 1 Me thodi hydrochloro 5-[address] thiazide 00:00: mouth Hospita (PRINZIDE) 00 daily. l 20-12.5 mg per tablet aspirin 2020-0 Yes 81mg QD Take 81 mg Meth isidro (ECOTRIN) 4-[address] 81 MG 00:00: daily. Hospita enteric 00 l coated tablet Lisinopril Lisinopril No 1{table QD Lisinopril 20 MG 20 MG t} 20 MG Metoprolol Metoprolol No 1{table QD Metoprolol Tartrate 25 Tartrate 25 t_with_ Tartrate MG MG food} 25 MG Lisinopril Lisinopril No 1{table QD Lisinopril 40 MG 40 MG t} 40 MG Metoprolol Metoprolol No 1{table QD Metoprolol Tartrate 25 Tartrate 25 t_with_ Tartrate MG MG food} 25 MG Aspirin 81 Aspirin 81 No 1{table QD Aspirin 81 81 MG 81 MG t} 81 MG Lisinopril Lisinopril No 1{table QD Lisinopril 40 MG 40 MG t} 40 MG Lisinopril Lisinopril No 1{table QD Lisinopril 20 MG 20 MG t} 20 MG Lisinopril Lisinopril No Lisinopril 40 MG 40 MG 40 MG Aspirin 81 Aspirin 81 No 1{table QD Aspirin 81 81 MG 81 MG t} 81 MG Metoprolol Metoprolol No 1{table QD Metoprolol Tartrate 25 Tartrate 25 t_with_ Tartrate MG MG food} 25 MG Metoprolol Metoprolol No 1{table QD Metoprolol Tartrate 25 Tartrate 25 t_with_ Tartrate MG MG food} 25 MG Metoprolol Metoprolol No Tartrate 25 Tartrate 25 MG MG Lisinopril Lisinopril No 1{table QD 20 MG 20 MG t} Aspirin 81 Aspirin 81 No 1{table QD 81 MG 81 MG t} Metoprolol Metoprolol No Metoprolol Tartrate 25 Tartrate 25 Tartrate MG MG 25 MG Lisinopril Lisinopril No 1{table QD Lisinopril 20 MG 20 MG t} 20 MG Aspirin 81 Aspirin 81 No 1{table QD Aspirin 81 81 MG 81 MG t} 81 MG Metoprolol Metoprolol No 1{table QD Metoprolol Tartrate 25 Tartrate 25 t_with_ Tartrate MG MG food} 25 MG Lisinopril Lisinopril No 1{table QD Lisinopril 20 MG 20 MG t} 20 MG Lisinopril Lisinopril No 1{table QD Lisinopril 20 MG 20 MG t} 20 MG Aspirin 81 Aspirin 81 No 1{table QD Aspirin 81 81 MG 81 MG t} 81 MG Metoprolol Metoprolol No Metoprolol Tartrate 25 Tartrate 25 Tartrate MG MG 25 MG Vital Signs Vital Name Observation Time Observation Value Comments Source height 2022-02-11 14:00:00 69 [in_i] Common [facility] weight 2022-02-11 14:00:00 212.9 [lb_av] [facility] temperature 2022-02-11 14:00:00 97.5 [degF] [facility] bmi 2022-02-11 14:00:00 31.44 kg/m2 [facility] oximetry 2022-02-11 14:00:00 100 % [facility] respiratory rate 2022-02-11 14:00:00 18 /min Comm on [facility] blood pressure 2022-02-11 14:00:00 138 mm[Hg] Common [facility] - systolic [facility] blood pressure 2022-02-11 14:00:00 90 mm[Hg] [facility] diastolic [facility] height 2021-11-05 08:00:00 69 [in_i] [facility] weight 2021-11-05 08:00:00 212.0 [lb_av] [facility] temperature 2021-11-05 08:00:00 97.2 [degF] [facility] bmi 2021-11-05 08:00:00 31.3 kg/m2 [facility] oximetry 2021-11-05 08:00:00 98 % [facility] respiratory rate 2021-11-05 08:00:00 17 /min Comm on [facility] blood pressure 2021-11-05 08:00:00 134 mm[Hg] Common [facility] - systolic [facility] blood pressure 2021-11-05 08:00:00 77 mm[Hg] [facility] - diastolic [facility] height 2021-10-22 08:00:00 69 [in_i] Common [facility] weight 2021-10-22 08:00:00 211.6 [lb_av] [facility] temperature 2021-10-22 08:00:00 98.1 [degF] Common [facility] bmi 2021-10-22 08:00:00 31.24 kg/m2 [facility] oximetry 2021-10-22 08:00:00 98 % [facility] respiratory rate 2021-10-22 08:00:00 18 /min Comm on [facility] blood pressure 2021-10-22 08:00:00 146 mm[Hg] Common [facility] - systolic [facility] blood pressure 2021-10-22 08:00:00 90 mm[Hg] Common [facility] - diastolic [facility] height 2021-06-25 08:20:00 69 [in_i] [facility] weight 2021-06-25 08:20:00 210 [lb_av] [facility] temperature 2021-06-25 08:20:00 97.3 [degF] [facility] bmi 2021-06-25 08:20:00 31.01 kg/m2 [facility] oximetry 2021-06-25 08:20:00 100 % [facility] respiratory rate 2021-06-25 08:20:00 18 /min Comm on [facility] blood pressure 2021-06-25 08:20:00 120 mm[Hg] Common [facility] - systolic [facility] blood pressure 2021-06-25 08:20:00 84 mm[Hg] [facility] diastolic [facility] Procedures This patient has no known procedures. Plan of Care Planned Activity Planned Date Details Comments Source Future Scheduled 2022-05-23 COVID-19 VACCINE (#1) [facility] Test 08:27:05 [code = COVID-19 VACCINE (#1)] Future Scheduled 2022-05-[address] [facility] Test 08:27:05 (procedure) [code = 499941719] Future Scheduled 2022-05-[address] [facility] Test 08:27:05 [code = COLONOSCOPY SCREENING] Future Scheduled 2022-05-23 SHINGLES VACCINES (1 Met [facility] Test 08:27:05 of 2) [code = SHINGLES VACCINES (1 of 2)] Future Scheduled 2022-05-23 INFLUENZA VACCINE Method [facility] Test 08:27:05 [code = INFLUENZA VACCINE] Future Scheduled 2022-05-23 HEPATITIS B VACCINES Met [facility] Test 08:27:05 (1 of 3 - 3-dose series) [code = HEPATITIS B VACCINES (1 of 3 - 3-dose series)] Encounters Start End Encounter Admission Attending Care Care Encounter Source Date/Time Date/Time Type Type Clinicians Facility Department ID 2022-01-24 Outpatient Anderson, STLMLC STLC [id number] Common 15:55:[id number] [facility] 2021-07-18 Outpatient Anderson, STLMLC ST[facility] [id number] Common 14:29:[id number] [facility] 2021-07-18 Outpatient Anderson, STLMLC STLC [id number] Common 13:33:[id number] [facility] 2021-07-18 Outpatient STLMLC STLC [id number] Common 12:59:[id number] [facility] 2022-02-11 2022-02-11 OFFICE STLC STLC [id number] Co mmon 00:00:00 00:00:00 VISIT EST Spir it PT LEVEL 3 [facility] 2021-11-05 2021-11-05 OFFICE STLC STLC [id number] Co mmon 00:00:00 00:00:00 VISIT EST Spir it PT LEVEL 3 [facility] 2021-10-22 2021-10-22 OFFICE STLMLC STLMLC [id number] Co mmon 00:00:00 00:00:00 VISIT [facility] PT [facility] LEVEL 4 [facility] 2021-06-29 2021-06-29 (TEL) STLMLC STLMLC [id number] Co mmon 00:00:00 00:00:00 [facility] 2021-06-25 2021-06-25 PREV VISIT STLMLC STLMLC [id number] Common 00:00:00 00:00:00 EST AGE Dustin 40-64 - [facility] 2021-02-02 2021-02-02 Outpatient [facility] [id number] [place] 00:00:00 00:00:[address] 2021-01-23 2021-01-23 Outpatient STLMLC STLMLC [id number] Common 00:00:00 00:00:00 [facility] 2021-01-08 2021-01-08 Outpatient STLMLC STLMLC [id number] Common 00:00:00 00:00:00 [facility] 2020-12-11 2020-12-12 Inpatient [facility], [facility] 021 [id number] [place] 00:00:00 00:00:00 [place] [address] 2020-12-06 2020-12-06 Outpatient CARTER, [facility] [id number] [place] 00:00:00 00:00:00 ED[place] [address] 2020-11-29 2020-11-29 Outpatient STLMLC STLMLC [id number] Common 00:00:00 00:00:00 [facility] 2020-11-16 2020-11-16 Outpatient CARTER, [facility] [id number] [place] 00:00:00 00:00:00 EDWARD [address] 2020-11-16 2020-11-16 Outpatient CARTER, [facility] [id number] [place] 00:00:00 00:00:00 EDWARD [address] 2020-11-16 2020-11-16 Outpatient CARTER, [facility] [id number] [place] 00:00:00 00:00:00 EDWARD [address] 2020-11-08 2020-11-08 Outpatient STLMLC STLMLC [id number] Common 00:00:00 00:00:00 [facility] 2020-10-26 2020-10-[facility] [id number] Common 00:00:00 00:00:00 [facility] 2020-10-24 2020-10-24 [facility] [id number] Common 00:00:00 00:00:00 [facility] Results Test Description Test Time Test Comments Results Result Comments Source SARS-CoV-2 (COVID-19) RNA [Presence] in Respiratory sp ecimen by 2020-12-06 15:55:41 ABIGAIL with probe detection Test Item Value Reference Range Interpretation Comme nts SARS-CoV-2 (COVID-19) RNA [Presence] in Respiratory Not detected No t-Detected specimen by ABIGAIL with probe detection (test code = 22499-9) Whether patient is employed in a healthcare setting (test code = 82964-2) Whether the patient has symptoms related to condition of interest (test code = 84444-9) Patient was hospitalized because of this condition (test code = 79807-6) Whether the patient was admitted to intensive care unit (ICU) for condition of interest (test code = 71191-7) Whether patient resides in a congregate care setting (test code = 32495-0) LEATHA BROWN
[2022-05-23 09:06] LABS: Absolute Lymphocytes (CBC) 0.8 K/uL (0.7-4.9); Hematocrit 38.3 % (39.6-49.0); Lymphocytes % 19.2 % (15.3-44.8); MCV 95.1 fL (80-100); MPV 7.1 fL (7.6-11.3); RBC Red Blood Cell Count 4.02 M/uL (4.33-5.43)
--- NOTE | 2022-05-23 09:16 | RAD REPORT ---
EXAM DESCRIPTION: Irineo Single View05/23/2022 9:05 am CLINICAL HISTORY: Syncope/hypertension COMPARISON: 2020 FINDINGS: The lungs appear clear of acute infiltrate. The heart is normal size IMPRESSION: No acute abnormalities displayed
--- NOTE | 2022-05-23 09:20 | RAD REPORT ---
EXAM DESCRIPTION: CT - Head Brain Wo Cont - 05/23/2022 9:12 am CLINICAL HISTORY: Syncope COMPARISON: 2020 TECHNIQUE: Computed axial tomography of the head was obtained. IV contrast was not requested. All CT scans are performed using dose optimization technique as appropriate and may include automated exposure control or mA/KV adjustment according to patient size. FINDINGS: An intracranial bleed is not seen . The ventricles are normal in caliber. No significant hypodense areas within the brain visualized No extra-axial fluid collection is noted. Fluid within the sinuses/ mastoids is not seen. IMPRESSION: No acute intracranial abnormality is seen. If patient's symptoms persist MRI of the bra in would be recommended.
[2022-05-23 09:36] LABS: Potassium 3.6 mmol/L (3.5-5.1); Troponin High Sensitivity 7.4 pg/mL (<58.9)
[2022-05-23 09:44] LABS: SARS-COV-2 RT PCR NEGATIVE (NEGATIVE)
[2022-05-23 09:51] LABS: Protime INR 1.15
[2022-05-23] MEDS ORDERED: HYDROCORTISONE SUC 100 MG INJ ONE (10:00)
[2022-05-23] MEDS ORDERED: OSELTAMIVIR 75 MG CAP PO ONE (10:00)
[2022-05-23] MEDS ORDERED: NA CHLORIDE 0.9% 1,000 ML ONE (10:00)
--- NOTE | 2022-05-23 10:58 | RAD REPORT ---
EXAM DESCRIPTION: CT - Chest For Pe Angio - 05/23/2022 10:38 am CLINICAL HISTORY: Syncope COMPARISON: 2020 TECHNIQUE: Dynamically enhanced axial 3 mm thick images of the chest were obtained during administra tion of <100> mL Isovue 370 IV contrast. Coronal and oblique reconstruction images were generated and reviewed. Exam utilizes a protocol for optimal evaluation of pulmonary arterial tree. Maximum intensity projections 3D imaging was utilized All CT scans are performed using dose optimization technique as appropriate and may include automated exposure control or mA/KV adjustment according to patient size. FINDINGS: A pulmonary embolus is not seen. A thoracic aortic aneurysm is not noted. A pleural effusion is not seen. A pericardial effusion is not seen. A lung consolidation is not present. Minimal reticulonodular opacities right lower lobe IMPRESSION: Negative for a pulmonary embolism.
--- NOTE | 2022-05-23 11:20 | EDPHYS ---
Physician Documentation [facility] Name: Hiram Art Age: 61 yrs Sex: Male : 1960 Arrival Date: 05/23/2022 Time: 08:25 Bed 18 Private MD: ED Physician Mariano Rivas HPI: 05/23 08:51 This 61 yrs old Male presents to ER via EMS with complaints of syncope. wes 08:51 sick since Friday, weak, cold like. The patient has experienced near-syncope, felt wes dizzy, felt faint, felt generally weak. Onset: The symptoms/episode began/occurred just prior to arrival. Duration: This was a single episode, that lasted 45 second(s). Context: the episode(s) was witnessed, by co-worker(s). Associated injury: The patient did not suffer any apparent associated injury. Associated signs and symptoms: Pertinent positives: abdominal pain, diarrhea, headache, lightheadedness. Current symptoms: Currently, the patient is not experiencing any symptoms. Severity of symptoms: At their worst the symptoms were moderate in the emergency department the symptoms are unchanged. 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 - Social history:: Smoking status: Patient denies any tobacco usage or history of. ROS: 08:52 Constitutional: Negative for fever, chills, and weight loss, Eyes: Negative for injury, wes pain, redness, and discharge, ENT: Negative for injury, pain, and discharge, Neck: Negative for injury, pain, and swelling, Cardiovascular: Negative for chest pain, palpitations, and edema, Respiratory: Negative for shortness of breath, cough, wheezing, and pleuritic chest pain, Abdomen/GI: Negative for abdominal pain, nausea, vomiting, diarrhea, and constipation, Back: Negative for injury and pain, : Negative for injury, bleeding, discharge, and swelling, MS/Extremity: Negative for injury and deformity, Skin: Negative for injury, rash, and discoloration, Psych: Negative for depression, anxiety, suicide ideation, homicidal ideation, and hallucinations, Allergy/Immunology: Negative for hives, rash, and allergies, Endocrine: Negative for neck swelling, polydipsia, polyuria, polyphagia, and marked weight changes, Hematologic/Lymphatic: Negative for swollen nodes, abnormal bleeding, and unusual bruising. 08:52 Neuro: Positive for syncope. Exam: 08:52 Constitutional: This is a well developed, well nourished patient who is awake, alert, wes and in no acute distress. Head/Face: Normocephalic, atraumatic. Eyes: Pupils equal round and reactive to light, extra-ocular motions intact. Lids and lashes normal. Conjunctiva and sclera are non-icteric and not injected. Cornea within normal limits. Periorbital areas with no swelling, redness, or edema. ENT: Nares patent. No nasal discharge, no septal abnormalities noted. Tympanic membranes are normal and external auditory canals are clear. Oropharynx with no redness, swelling, or masses, exudates, or evidence of obstruction, uvula midline. Mucous membranes moist. Neck: Trachea midline, no thyromegaly or masses palpated, and no cervical lymphadenopathy. Supple, full range of motion without nuchal rigidity, or vertebral point tenderness. No Meningismus. Chest/axilla: Normal chest wall appearance and motion. Nontender with no deformity. No lesions are appreciated. Cardiovascular: Regular rate and rhythm with a normal S1 and S2. No gallops, murmurs, or rubs. Normal PMI, no JVD. No pulse deficits. Respiratory: Lungs have equal breath sounds bilaterally, clear to auscultation and percussion. No rales, rhonchi or wheezes noted. No increased work of breathing, no retractions or nasal flaring. Abdomen/GI: Soft, non-tender, with normal bowel sounds. No distension or tympany. No guarding or rebound. No evidence of tenderness throughout. Back: No spinal tenderness. No costovertebral tenderness. Full range of motion. Male : Normal genitalia with no discharge or lesions. Skin: Warm, dry with normal turgor. Normal color with no rashes, no lesions, and no evidence of cellulitis. MS/ Extremity: Pulses equal, no cyanosis. Neurovascular intact. Full, normal range of motion. Neuro: Awake and alert, GCS 15, oriented to person, place, time, and situation. Cranial nerves II-XII grossly intact. Motor strength 5/5 in all extremities. Sensory grossly intact. Cerebellar exam normal. Normal gait. Psych: Awake, alert, with orientation to person, place and time. Behavior, mood, and affect are within normal limits. 08:59 ECG was reviewed by the Attending Physician. wes 10:00 Musculoskeletal/extremity: DVT Exam: No signs of deep vein thrombosis. no pain, no wes swelling, no tenderness, negative Homans' sign noted on exam, no appreciated bluish discoloration, no erythema, no increased warmth. Vital Signs: 08:28 BP 100 / 60; Pulse 58; Resp 18; Temp 97.6(O); Pulse Ox 95% ; Weight 93.89 kg; Height 5 ap3 ft. 9 in. (175.26 cm); 09:00 BP 128 / 66; Pulse 57; Pulse Ox 99% on R/A; ap3 11:00 BP 148 / 74; Pulse 63; Pulse Ox 98% on R/A; ap3 12:35 BP 144 / 79 Supine; Pulse 66; ap3 12:40 BP 142 / 86 Sitting; Pulse 67; ap3 12:45 BP 148 / 78 Standing; Pulse 68; ap3 08:28 Body Mass Index 30.57 (93.89 kg, 175.26 cm) ap3 MDM: 08:25 Patient medically screened. wes 08:53 Differential Diagnosis altered mental status, flu. Differential Diagnosis: cardiac wes arrhythmia, cerebrovascular accident, emotional response, GI bleed, pseudo seizure, seizure. Data reviewed: vital signs, nurses notes, lab test result(s), EKG, radiologic studies, CT scan, plain films. Data interpreted: equipment monitor phototypesetting: rate is 58 beats/min, rhythm is regular, Pulse oximetry: on room air is 95 %. Test interpretation: by ED physician or midlevel provider: ECG, plain radiologic studies. Counseling: I had a detailed discussion with the patient and/or guardian regarding: the historical points, exam findings, and any diagnostic results supporting the discharge/admit diagnosis, lab results, radiology results. 05/23 08:36 Order name: Basic Metabolic Panel; Complete Time: 09:38 ll1 05/23 08:36 Order name: CBC with Diff; Complete Time: 09:38 ll1 12 08:36 Order name: Troponin HS; Complete Time: 09:38 ll1 05/23 08:36 Order name: COVID-19/FLU A+B; Complete Time: 09:57 [facility] 05/23 08:36 Order name: Strep; Complete Time: 09:38 [facility] 05/23 08:39 Order name: LFT's [facility] 05/23 08:39 Order name: Magnesium [facility] 05/23 08:39 Order name: NT PRO-BNP [facility] 05/23 08:39 Order name: PT-INR; Complete Time: 10:44 [facility] 05/23 08:39 Order name: Lipase [facility] 05/23 08:36 Order name: XRAY Chest (1 view); Complete Time: 09:38 [facility] 05/23 08:36 Order name: EKG; Complete Time: 08:37 [facility] 05/23 08:36 Order name: Cardiac monitoring; Complete Time: 08:38 [facility] 05/23 08:36 Order name: EKG - Nurse/Tech; Complete Time: 08:57 [facility] 05/23 08:36 Order name: IV Saline Lock; Complete Time: 08:38 [facility] 05/23 08:58 Order name: CT Head Brain wo Cont; Complete Time: 09:38 [facility] 05/23 09:19 Order name: Throat Culture [facility] 05/23 09:34 Order name: D-Dimer; Complete Time: 10:44 [facility] 05/23 10:03 Order name: CT Chest For PE Angio; Complete Time: 11:15 [facility] 05/23 08:36 Order name: Labs collected and sent; Complete Time: 08:57 [facility] 05/23 08:36 Order name: O2 Per Protocol; Complete Time: 08:38 [facility] 05/23 08:36 Order name: O2 Sat Monitoring; Complete Time: 08:38 [facility] 05/23 08:39 Order name: Cardiac monitoring; Complete Time: 08:49 [facility] 05/23 08:39 Order name: EKG - Nurse/Tech; Complete Time: 08:49 [facility] 05/23 08:39 Order name: IV Saline Lock; Complete Time: 08:49 [facility] 05/23 08:39 Order name: Labs collected and sent; Complete Time: 08:57 [facility] 05/23 08:39 Order name: O2 Per Protocol; Complete Time: 08:49 [facility] 05/23 08:39 Order name: O2 Sat Monitoring; Complete Time: 08:49 [facility] 05/23 09:40 Order name: Orthostatics: after second liter; Complete Time: 12:47 wes EC:59 Rate is 59 beats/min. Rhythm is regular. QRS [place] is Normal. [place] interval is normal. QRS wes interval is normal. QT interval is normal. No Q waves. T waves are Normal. No ST changes noted. Clinical impression: NSR w/ Non-specific ST/T Changes and No evidence of ischemia. Interpreted by me. Reviewed by me. Administered Medications: 08:49 Drug: NS 0.9% 1000 ml Route: IV; Rate: 1 bolus; Site: right antecubital; ap3 10:16 Follow up: IV Status: Infusion continued ap3 10:09 Drug: NS 0.9% 1000 ml Route: IV; Rate: 1 bolus; Site: right antecubital; ap3 12:47 Follow up: IV Status: Completed infusion; IV Intake: 1000ml ap3 10:09 Drug: Solu-CORTEF (hyrdoCORTISONE) 100 mg Route: IVP; Site: right antecubital; ap3 12:47 Follow up: Response: No adverse reaction ap3 10:16 Drug: Tamiflu (oseltamivir) 75 mg Route: PO; ap3 12:47 Follow up: Response: No adverse reaction ap3 Disposition Summary: 05/23/22 11:19 Discharge Ordered Location: Home wes Problem: new wes Symptoms: have improved wes Condition: Stable wes Diagnosis - Syncope Near wes - Dehydration wes - Weakness wes - Influenza due to identified novel influenza A virus wes Followup: wes - With: Private Physician - When: 2 - 3 days - Reason: Recheck today's complaints, Continuance of care, Re-evaluation by your physician Discharge Instructions: - Discharge Summary Sheet wes - Dehydration, Adult wes - Near-Syncope wes - Syncope wes - Weakness wes - Near-Syncope, Uvhz-av-Egyf wes - Syncope, Sqlk-no-Glqy wes - Weakness, Guzo-nc-Qzxe wes - Dehydration, Adult, Rqkr-de-Ilwq wes - Rehydration, Adult wes Forms: - Medication Reconciliation Form wes - Thank You Letter wes - Antibiotic Education wes - Prescription Opioid Use wes - Work release form ap3 Prescriptions: - Zofran 4 mg Oral Tablet - take 1 tablet by ORAL route every 12 hours As needed; 20 tablet; Refills: 0, wes Product Selection Permitted - Tamiflu 75 mg Oral Capsule - take 1 tablet by ORAL route every 12 hours for 5 days; 10 tablet; Refills: 0, wes Product Selection Permitted Signatures: Dispatcher [employer] EDMS Mariano Rivas MD MD cha Prokisch, Amanda RN RN ap3 Rhys Donato RN RN ll1 Corrections: (The following items were deleted from the chart) 08:42 08:39 Chest Single View+RAD.RAD.BRZ ordered. EDMS EDMS 09:38 09:14 D-DIMER+COAG.LAB.BRZ ordered. EDMS EDMS 12:29 08:39 CBC+H.LAB.BRZ ordered. EDMS EDMS 12:31 08:39 BASIC METABOLIC PANEL+C.LAB.BRZ ordered. EDMS EDMS 12:31 08:39 Troponin High Sensitivity+C.LAB.BRZ ordered. EDMS EDMS
--- NOTE | 2022-05-23 11:20 | ER ---
Nurse's Notes [facility] Name: Hiram Art Age: 61 yrs Sex: Male : 1960 Arrival Date: 05/23/2022 Time: 08:25 Bed 18 Private MD: Diagnosis: Syncope Near;Dehydration;Weakness;Influenza due to identified novel influenza A virus Presentation: 05/23 08:28 Chief complaint: EMS states: patient was at work, when he experienced a syncopal ap3 episode. it is reported the patient was clammy upon EMS's arrival and the patients coworkers reported to EMS the patient was "out for approx 3 minutes". EMS stated that the patient was awake on their arrival. Patient is A/O X's 4. Patient states that he has been feeling sick for a few days prior to this occurring. Coronavirus screen: Client presents with at least one sign or symptom that may indicate coronavirus-19. Ebola Screen: No symptoms or risks identified at this time. Initial Sepsis Screen: Does the patient meet any 2 criteria? No. Patient's initial sepsis screen is negative. Does the patient have a suspected source of infection? No. Patient's initial sepsis screen is negative. Risk Assessment: Do you want to hurt yourself or someone else? Patient reports no desire to harm self or others. Onset of symptoms was May 23, 2022. Care prior to arrival: IV initiated. 20 GA, in the right antecubital area. 08:28 Method Of Arrival: EMS: [facility] ap3 08:28 Acuity: MARY 3 ap3 08:32 Care prior to arrival: Medication(s) given: Normal saline infusion, 1000 mL. ap3 Triage Assessment: 08:32 General: Appears comfortable, Behavior is calm, cooperative. Pain: Denies pain. Neuro: ap3 Level of Consciousness is awake, alert, obeys commands, Oriented to person, place, time, situation, Reports a syncopal episode. Cardiovascular: Patient's skin is warm and dry. Respiratory: Airway is patent Respiratory effort is even, unlabored. 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 - Social history:: Smoking status: Patient denies any tobacco usage or history of. Screenin:33 Abuse screen: Denies threats or abuse. Nutritional screening: No deficits noted. ap3 Tuberculosis screening: No symptoms or risk factors identified. Fall Risk No fall in past 12 months (0 pts). No secondary diagnosis (0 pts). IV access (20 points). Ambulatory Aid- None/Bed Rest/Nurse Assist (0 pts). Gait- Normal/Bed Rest/Wheelchair (0 pts) Mental Status- Oriented to own ability (0 pts). Total Enrique Fall Scale indicates No Risk (0-24 pts). Assessment: 09:56 General: provider notified of critical DDimer 617.. ap3 10:45 Reassessment: Patient and/or family updated on plan of care and expected duration. Pain ap3 level reassessed. Patient is alert, oriented x 3, equal unlabored respirations, skin warm/dry/pink. Vital Signs: 08:28 BP 100 / 60; Pulse 58; Resp 18; Temp 97.6(O); Pulse Ox 95% ; Weight 93.89 kg; Height 5 ap3 ft. 9 in. (175.26 cm); 09:00 BP 128 / 66; Pulse 57; Pulse Ox 99% on R/A; ap3 11:00 BP 148 / 74; Pulse 63; Pulse Ox 98% on R/A; ap3 12:35 BP 144 / 79 Supine; Pulse 66; ap3 12:40 BP 142 / 86 Sitting; Pulse 67; ap3 12:45 BP 148 / 78 Standing; Pulse 68; ap3 08:28 Body Mass Index 30.57 (93.89 kg, 175.26 cm) ap3 ED Course: 08:25 Patient arrived in ED. wes 08:25 Mariano Rivas MD is Attending Physician. wes 08:28 Esther Aburto RN is Primary Nurse. ap3 08:32 Triage completed. ap3 08:34 Arm band placed on right wrist. ap3 08:34 Patient has correct armband on for positive identification. Placed in gown. Bed in low ap3 position. Call light in reach. Side rails up X2. court monitor on. Pulse ox on. NIBP on. Door closed. Noise minimized. 08:34 Maintain EMS IV. Dressing intact. Good blood return noted. Site clean \\T\\ dry. Gauge \\T\\ ap 3 site: 20g right AC. 09:07 XRAY Chest (1 view) In Process Unspecified. EDMS 09:13 CT Head Brain wo Cont In Process Unspecified. EDMS 10:39 CT Chest For PE Angio In Process Unspecified. EDMS 12:49 No provider procedures requiring assistance completed. IV discontinued, intact, ap3 bleeding controlled, No redness/swelling at site. Pressure dressing applied. Administered Medications: 08:49 Drug: NS 0.9% 1000 ml Route: IV; Rate: 1 bolus; Site: right antecubital; ap3 10:16 Follow up: IV Status: Infusion continued ap3 10:09 Drug: NS 0.9% 1000 ml Route: IV; Rate: 1 bolus; Site: right antecubital; ap3 12:47 Follow up: IV Status: Completed infusion; IV Intake: 1000ml ap3 10:09 Drug: Solu-CORTEF (hyrdoCORTISONE) 100 mg Route: IVP; Site: right antecubital; ap3 12:47 Follow up: Response: No adverse reaction ap3 10:16 Drug: Tamiflu (oseltamivir) 75 mg Route: PO; ap3 12:47 Follow up: Response: No adverse reaction ap3 Medication: 08:34 VIS not applicable for this client. ap3 Intake: 12:47 IV: 1000ml; Total: 1000ml. ap3 Outcome: 11:19 Discharge ordered by . wes 12:49 Discharged to home ambulatory. ap3 12:49 Condition: good 12:49 Discharge instructions given to patient, Instructed on discharge instructions, follow up and referral plans. medication usage, Demonstrated understanding of instructions, follow-up care, medications, Prescriptions given X 2. 12:49 Patient left the ED. ap3 Signatures: Dispatcher [employer] EDMS Mariano Rivas MD MD cha Prokisch, Amanda RN RN ap3
[2022-05-23 12:50] LABS: Albumin 3.3 g/dL (3.4-5.0); Bilirubin Direct 0.1 mg/dL (0-0.2); Bilirubin Total 0.6 mg/dL (0.2-1.0); Magnesium 2.4 mg/dL (1.8-2.4); Protein, Total 6.7 g/dL (6.4-8.2)
[2022-05-23 13:02] VITALS: TEMP 97.6
[2022-05-23 13:14] VITALS: O2SAT 98
[2022-05-23 13:21] VITALS: BP 148/78
--- NOTE | 2022-05-24 07:54 | EKG ---
Test Date: 2022-05-23 Test Time: 08:43:40 [employer]: FORTINO MEASUREMENT RESULTS: Intervals: Rate: 59 ID: [id number] QRSD: 84 QT: 436 QTc: 431 [place]: P: 62 ID: [id number] QRS: 38 T: 25 INTERPRETIVE STATEMENTS: Sinus bradycardia Otherwise normal ECG Compared to ECG 10/15/2020 14:58:15 Sinus rhythm no longer present Left ventricular hypertrophy no longer present Electronically Signed On 05-24-22 07:49:18 THREAD SINGER by Jamil Medina
== END 2022-05-23 12:49 | disposition home or self-care (01) ==
LOC: ER 08:24
DX: J10.1 Influenza due to other identified influenza virus with other respiratory manifestations (principal); E86.0 Dehydration; R53.1 Weakness; Z20.822 Contact with and (suspected) exposure to COVID-19; I10 Essential (primary) hypertension
CPT/HCPCS: 96361; 93005; 87070; 85025; 80048; 36415; 83735; 85610; 85379; 80076; 87081; 84484; 83690; 83880; 0240U; 70450; 71275; 71045; 96374; 99284; Q9967; J7030; J1720